=== PATIENT | male | born 1945 | race African-American/Black ===

== ENCOUNTER 2017-05-19 09:32 | Emergency (ER) | payer MEDICARE, MEDICAID ==
[2017-05-19] MEDS ORDERED: HYDROcodone/Acetaminophen 5/325 mg Tablet ONE (10:27)
--- NOTE | 2017-05-19 11:07 | RAD ---
LEFT HIP 2 VIEW: Date: 05/19/17 INDICATION: Pain. FINDINGS: There is no evidence of fracture or dislocation. Moderate osteoarthritis is present involving the lef t hip. There is degenerative change of the incidentally imaged regional skeletal structures. Heteroto pic density overlies the left lateral gluteal soft tissues. IMPRESSION: Moderate osteoarthritis of the left hip without acute fracture. POS: [facility]
--- NOTE | 2017-05-19 11:10 | RAD ---
3 VIEWS LUMBAR SPINE: Date: 05/19/17 COMPARISON: None. HISTORY: Left hip pain, radiculopathy. FINDINGS: There are five lumbar-type vertebral bodies with intact pedicles on frontal imaging. Lateral imaging demonstrates facet hypertrophy at L4-5 and L5-S1. There is mild multilevel disc space narrowing and anterior osteophyte formation seen within the lumbar spine. There is no fracture. Ther e is no anterolisthesis or retrolisthesis. Incompletely assessed area of increased density overlies the inferolateral aspect of the left iliac b one, which may be within the soft tissues. There is degenerative change involving bilateral hips, inc ompletely assessed. IMPRESSION: Degenerative change. No acute fracture. POS: [facility]
== END 2017-05-19 12:04 | disposition home or self-care (01) ==
LOC: NAV ERS 09:32
DX: M16.12 Unilateral primary osteoarthritis, left hip (principal); M54.5 Low back pain; G47.30 Sleep apnea, unspecified; E11.9 Type 2 diabetes mellitus without complications; I11.0 Hypertensive heart disease with heart failure; I50.9 Heart failure, unspecified; J44.9 Chronic obstructive pulmonary disease, unspecified; F17.210 Nicotine dependence, cigarettes, uncomplicated
CPT/HCPCS: 72100

== ENCOUNTER 2017-05-24 09:38 | Emergency (ER) | payer MEDICARE, MEDICAID | END 2017-05-24 10:10 | disposition home or self-care (01) | LOC: NAV ERS 09:38 | DX: M19.90 Unspecified osteoarthritis, unspecified site (principal); J44.9 Chronic obstructive pulmonary disease, unspecified; E11.9 Type 2 diabetes mellitus without complications; I11.0 Hypertensive heart disease with heart failure; I50.9 Heart failure, unspecified; F17.210 Nicotine dependence, cigarettes, uncomplicated; Z79.891 Long term (current) use of opiate analgesic; Z79.84 Long term (current) use of oral hypoglycemic drugs; Z79.899 Other long term (current) drug therapy | CPT/HCPCS: 99283 ==

== ENCOUNTER 2017-06-07 09:30 | Emergency (ER) | payer MEDICARE, MEDICAID ==
[2017-06-07] MEDS ORDERED: Acetaminophen 500 MG TAB ONE (10:43)
== END 2017-06-07 10:45 | disposition home or self-care (01) ==
LOC: NAV ERS 09:30
DX: M25.511 Pain in right shoulder (principal); M25.512 Pain in left shoulder; J44.9 Chronic obstructive pulmonary disease, unspecified; I11.0 Hypertensive heart disease with heart failure; I50.9 Heart failure, unspecified; G47.30 Sleep apnea, unspecified; Z87.891 Personal history of nicotine dependence; Z79.84 Long term (current) use of oral hypoglycemic drugs; Z79.899 Other long term (current) drug therapy
CPT/HCPCS: 99283

== ENCOUNTER 2017-12-17 10:49 | Emergency (ER) | payer MEDICARE, MEDICAID ==
[2017-12-17 12:39] LABS: Bilirubin Negative (Negative); Blood, Urine Negative (Negative); Clarity Clear (Clear); Glucose, Urine (Dipstick) Negative (Negative); Leukocyte Negative (Negative); Nitrite Negative (Negative); Protein, Urine (Dipstick) Negative (Neg-Trace); Urobilinogen 0.2 mg/dL (0.2-1.0)
--- NOTE | 2017-12-17 12:45 | RAD ---
RIGHT RIB SERIES CHEST SINGLE VIEW SERIES: Date: 12/17/17 CLINICAL HISTORY: Chest injury, pain. FINDINGS: There is redemonstration of rounded density of the right perihilar region and medial right lung base. There is adjacent hazy density indicative of pleural fluid. A rib fracture of the right chest is not visualized. Left chest port is present. There is evidence of edema, likely related to CHF. IMPRESSION: 1. No discrete right rib fracture. 2. Persistent rounded density of the perihilar and infrahilar aspect of right hemithorax with adjace nt hazy density suggestive of pleural fluid. 3. Decompensated CHF. POS: [facility]
[2017-12-17 12:52] LABS: ALT (SGPT) 10 U/L (8-55); AST (SGOT) 12 U/L (5-34); Albumin 3.6 g/dL (3.4-4.8); Alkaline Phosphatase 78 U/L (40-150); Anion Gap 14 mmol/L (10-20); BUN (Urea Nitrogen) 12 mg/dL (8.4-25.7); Bilirubin, Total 0.3 mg/dL (0.2-1.2); CK (CPK) 49 U/L (30-200); Calc. Creatinine Clearance 0 mL/min (70-130); Calcium 9.7 mg/dL (7.8-10.44); Carbon Dioxide 33 mmol/L (23-31); Chloride 100 mmol/L (98-107); Estimated GFR-MDRD 86; Glucose 102 mg/dL (83-110); Potassium 4.5 mmol/L (3.5-5.1); Protein, Total 6.6 g/dL (5.8-8.1); Sodium 142 mmol/L (136-145)
[2017-12-17 12:53] LABS: CKMB 1.2 ng/mL (0-6.6); Troponin I 0.016 ng/mL (< 0.028)
[2017-12-17 12:55] LABS: #Basophils 0.1 thou/uL (0.0-0.2); #Eosinphils 0.2 thou/uL (0.0-0.7); #Lymphocytes 0.7 thou/uL (1.20-3.40); #Monocytes 0.3 thou/uL (0.11-0.59); #Neutrophils 5.6 thou/uL (1.40-6.50); %Basophils 1.2 % (0.0-1.0); %Eosinophils 3.2 % (0.0-10.0); %Lymphocytes 9.8 % (21.0-51.0); %Monocytes 4.5 % (0.0-10.0); %Neutrophils 81.3 % (42.0-75.0); Anisocytosis SLIGHT = 6-15 cells (100X) (0-5/hpf); Hemoglobin 13.5 g/dL (14.0-18.0); MDiff Complete? YES; Mean Corpuscular HGB CONC 28.2 g/dL (32.0-36.0); Mean Corpuscular Hemoglobin 25.8 pg (27.0-31.0); Mean Corpuscular Volume 91.7 fL (78.0-98.0); Mean Platelet Volume 6.7 fL (7.4-10.4); PLT Morphology Comment Appears Adequate; Platelet Count 190 thou/uL (130-400); RBC Distribution Width 18.5 % (11.5-14.5); Red Blood Cell (RBC) Count 5.24 mill/uL (4.70-6.10); White Blood Cell (WBC) Count 6.9 thou/uL (4.8-10.8)
== END 2017-12-17 13:13 | disposition home or self-care (01) ==
LOC: NAV ERS 10:49
DX: S23.41XA Sprain of ribs, initial encounter (principal); E78.5 Hyperlipidemia, unspecified; I11.0 Hypertensive heart disease with heart failure; I50.9 Heart failure, unspecified; E11.9 Type 2 diabetes mellitus without complications; J44.9 Chronic obstructive pulmonary disease, unspecified; F17.210 Nicotine dependence, cigarettes, uncomplicated; Z79.84 Long term (current) use of oral hypoglycemic drugs; Z79.899 Other long term (current) drug therapy; W18.30XA Fall on same level, unspecified, initial encounter
CPT/HCPCS: 80053; 81003; 82553; 84484; 85025; 93005

== ENCOUNTER 2018-07-12 08:28 | Outpatient (CLI) | payer MEDICARE, OTHER ==
[2018-07-12] MEDS ORDERED: Iopamidol 370 76% 100 ML VIAL ONE (09:00)
--- NOTE | 2018-07-12 10:57 | CT ---
CT CHEST WITH IV CONTRAST: DATE: 07/12/2018. PROVIDED CLINICAL HISTORY: Lung cancer. FINDINGS: Comparison is made with the studies dated 03/19/2018 and 10/07/2017. The heart, pericardium, and great vessels demonstrate an unchanged CT appearance. Mildly enlarged ri ght paratracheal lymph node is redemonstrated. No additional thoracic lymph node enlargement is evid ent. There has been interval increase in reticulonodular opacity in a peribronchovascular distribution inv olving the posterior segment of the right upper lobe. The posterior segment pleural-based nodular de nsity initially described on the 10/07/2017 examination is not definitely discretely separable from th e somewhat confluent reticulonodular opacity present involving the right upper lobe on today's examin ation. There is a 2.1 cm greatest transverse dimension focal area of parenchymal opacity that involves the m ore central aspects of the right upper lobe and probably represents interval growth of the previously described 1 cm right upper lobe pulmonary nodule on the 03/19/2018 study. In addition, there has been interval development of a separate area of discrete nodularity involving the more inferior aspects of the posterior segment of the right upper lobe, measuring about 7 mm in g reatest transverse dimension and about 11 mm in greatest craniocaudal dimension. This is seen to bes t advantage on the coronal reconstructions image 118 and lung windows image 19. Scattered additional areas of predominantly linear parenchymal opacity are demonstrated, likely reflecting subsegmental v olume loss. There is a small right pleural effusion, similar to the prior study. Destructive change involving th e posterior aspects of the right 9th rib are redemonstrated with progressive osseous destruction and adjacent soft tissue density. The airway appears patent and of normal caliber. There is no evidence for pneumothorax. The visualized portions of the upper abdomen demonstrate no significant interval change. IMPRESSION: 1. Worsening reticulonodular parenchymal opacity involving the right upper lobe suspicious for neopl asm. Development of new parenchymal nodule involving right upper lobe separate from this area of ret iculonodular opacity measuring 1.1 cm. 2. Progressive bone destruction and juxta-osseous soft tissue mass involving the posterior right 9th rib. POS: [facility]
== END 2018-07-12 08:29 | disposition home or self-care (01) ==
LOC: NAV CT 08:28
PROVIDERS: ATTEND Internal Medicine Hematology & Oncology
DX: C34.11 Malignant neoplasm of upper lobe, right bronchus or lung (principal); R91.8 Other nonspecific abnormal finding of lung field; M89.8X8 Other specified disorders of bone, other site
CPT/HCPCS: 71260; Q9967

== ENCOUNTER 2018-09-15 09:49 | Outpatient (CLI) | payer MEDICARE, MEDICAID ==
[~2018-09-15 09:49] MED LIST: Iopamidol 370 76% 100 ML VIAL ONE
--- NOTE | 2018-09-15 11:44 | CT ---
CT CHEST WITH CONTRAST: HISTORY: Lung cancer. Osseous metastases to the 9th rib. The patient has undergone chemotherapy. COMPARISON: 07/12/2018 and 03/29/2018 FINDINGS: Stable right paratracheal lymph node, measuring 1.0 x 1.3 cm (previously measuring 0.9 x 0.8 cm). St able prevascular lymph node, measuring 2.0 x 1.3 cm (2.2 x 1.3 cm). Normal heart size. No significant pericardial fluid. Visualized aorta has a normal caliber. Stable hypodensity in the left hepatic lobe. Visualized upper solid organs are unremarkable. Trachea and central bronchi are patent. Patchy irregular opacities noted in the right upper lung have resolved. Currently, there are more li near appearing opacities, suggesting post treatment change. Interstitial opacities in the right upper lobe may represent post treatment change. There is no evidence of consolidation or mass. Area s of scarring in the lingula, left lower lobe, right lower lobe, and middle lobe are noted. Redemonstration of blebs in the left infrahilar region. Previously noted destructive changes involving the posterior right 9th rib are less evident. Scleros is, suggesting a treated metastatic site, is identified. Associated pathologic fracture is noted, with callus formation, suggesting a chronic process. No additional areas of osseous metastases are a ppreciated. IMPRESSION: 1. Persistent linear opacities, with decreased irregular mass-like opacities in the right upper lobe , suggesting at least partial response to therapy. The changes in the right upper lobe may represent post treatment change. 2. Findings suggesting a treated metastatic lesion involving the posterior right 9th rib. Associate d sclerosis and pathologic fracture. 3. Stable mediastinal lymph nodes. Transcribed Date/Time: 09/15/2018 1:32 PM
== END 2018-09-15 09:50 | disposition home or self-care (01) ==
LOC: NAV CT 09:49
PROVIDERS: ATTEND Internal Medicine Hematology & Oncology
DX: Z01.812 Encounter for preprocedural laboratory examination (principal); C34.90 Malignant neoplasm of unspecified part of unspecified bronchus or lung
CPT/HCPCS: 36415; 71260; 82565; Q9967

== ENCOUNTER 2018-12-30 09:39 | Outpatient (CLI) | payer MEDICARE, OTHER ==
[~2018-12-30 09:39] MED LIST changes: -Iopamidol 370 76% 100 ML VIAL ONE; +Iopamidol 370 76% 50 ML VIAL FS ONE
--- NOTE | 2018-12-30 11:25 | CT ---
Exam: CHEST CT WITH CONTRAST: COMPARISON: 09/15/2018, 07/12/2018, 03/19/2018. HISTORY: Right upper lobe neoplasm FINDINGS: Stable large right paratracheal lymph node with preserved fatty hilum, measuring 1.4 x 0.9 cm. Enlarg ed prevascular lymph node measuring 1.0 x 2.0 cm (previously measuring 1.1 x 2.0 cm). 1.5 x 1.2 cm right perihilar lymph node. Lymph node is difficult to appreciate on the most recent prior examinatio n. Heart size: Normal. No significant pericardial fluid. Aorta: Normal caliber. No aneurysm or dissection. Solid organs: Stable cyst in the left hepatic lobe. Remaining solid organs are grossly unremarkable. Trachea and central bronchi: Patent. No significant mass or occlusion. Right lung: Linear opacities in the right upper lobe are slightly less prominent when compared to the previous examination. Increased linear density, likely representing areas of scar and atelectasis are demonstrated. Middle lobe is unremarkable. There are linear densities in the right lower lobe, al loli with a stable small right-sided pleural effusion. Left lung: Linear densities in the lingula and left lower lobe are unchanged and represent chronic pr ocess There is interval sclerosis involving the posterior right ninth rib. Previously noted pathologic frac ture is difficult to appreciate on the current examination. There is a new lucency involving the right rib, measuring 1.7 x 1.2 cm with an attenuation coefficient of 5 Hounsfield units. Possibility of metastatic disease cannot be excluded. IMPRESSION: 1. Stable mediastinal lymphadenopathy. 2. Questionable enlarged right perihilar lymph node. Lymph node is not definitively appreciated previ ously. 3. Interval sclerosis of a previously noted pathologic fracture involving the posterior right ninth r ib. Interval development of a lucency which may represent a new metastatic deposit in the posterior right ninth rib. Transcribed Date/Time: 12/30/2018 11:31 AM
== END 2018-12-30 09:40 | disposition home or self-care (01) ==
LOC: NAV CT 09:39
PROVIDERS: ATTEND Internal Medicine Hematology & Oncology
DX: C34.11 Malignant neoplasm of upper lobe, right bronchus or lung (principal); R59.0 Localized enlarged lymph nodes; M84.48XD Pathological fracture, other site, subsequent encounter for fracture with routine healing; R93.7 Abnormal findings on diagnostic imaging of other parts of musculoskeletal system
CPT/HCPCS: 36415; 71260; 82565; Q9967

== ENCOUNTER 2019-04-21 09:15 | Outpatient (CLI) | payer MEDICARE, MEDICAID ==
[~2019-04-21 09:15] MED LIST changes: +Iopamidol 370 76% 100 ML VIAL ONE; -Iopamidol 370 76% 50 ML VIAL FS ONE
--- NOTE | 2019-04-21 10:28 | CT ---
CT OF THE CHEST WITH IV CONTRAST INDICATION: Lung cancer COMPARISON: CT of the thorax with IV contrast dated December 30, 2018 and September 15, 2018 FINDINGS: CHEST: Lungs: There is stable reticulation of bronchiectasis within the posterior segment of the right upper lobe most consistent with changes of radiation fibrosis. Mild scattered emphysema is stable. There areas of subsegmental volume loss involving both lower lobes. Pleural space: There is a tiny right pleural effusion. Mediastinum: There is been interval decrease in size of the previously described enlarged right infra hilar lymph node. This previously measured 1.2 cm in its greatest short axis dimension now measures 9 mm on image 30 of series 2. Previously seen enlarged right paratracheal lymph node measuring 9 mm n ow measures 8 mm. Previously seen enlarged prevascular lymph node measuring 9.9 mm now measures 7.3 mm. Upper abdomen:There is a stable left hepatic lobe cysts. Adrenal glands are normal appearing. Osseous structures: There is a new osteolytic lesion involving the posterior right ninth rib now gogo uring 3.9 cm Previously seen lesion involving the posterior lateral right ninth rib has increased in size now gogo uring 2 cm. There is a new lytic lesion involving the anterolateral left fourth rib measuring 9.4 mm. There is scattered degenerative and osteoarthritic changes. Soft tissues:Normal. IMPRESSION: Mixed response to therapy. 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
== END 2019-04-21 09:16 | disposition home or self-care (01) ==
LOC: NAV CT 09:15
PROVIDERS: ATTEND Internal Medicine Hematology & Oncology
DX: Z01.812 Encounter for preprocedural laboratory examination (principal); C34.11 Malignant neoplasm of upper lobe, right bronchus or lung; R59.0 Localized enlarged lymph nodes; C79.51 Secondary malignant neoplasm of bone
CPT/HCPCS: 36415; 71260; 82565; Q9967

== ENCOUNTER 2019-05-10 12:57 | Emergency (ER) | payer MEDICARE, MEDICAID | END 2019-05-10 14:05 | disposition home or self-care (01) | LOC: NAV ERS 12:57 | DX: J06.9 Acute upper respiratory infection, unspecified (principal); E78.5 Hyperlipidemia, unspecified; E11.9 Type 2 diabetes mellitus without complications; C34.91 Malignant neoplasm of unspecified part of right bronchus or lung; I11.0 Hypertensive heart disease with heart failure; E78.00 Pure hypercholesterolemia, unspecified; I50.9 Heart failure, unspecified; M19.90 Unspecified osteoarthritis, unspecified site; J44.9 Chronic obstructive pulmonary disease, unspecified; G47.32 High altitude periodic breathing; F17.210 Nicotine dependence, cigarettes, uncomplicated; Z79.84 Long term (current) use of oral hypoglycemic drugs; Z79.51 Long term (current) use of inhaled steroids; Z79.899 Other long term (current) drug therapy; Z85.038 Personal history of other malignant neoplasm of large intestine | CPT/HCPCS: 99283 ==

== ENCOUNTER 2019-06-08 10:52 | Emergency (ER) | payer MEDICARE, MEDICAID ==
[~2019-06-08 10:52] MED LIST changes: -Iopamidol 370 76% 100 ML VIAL ONE; +Succinylcholine Chloride 20 MG/ML 10 ml SYRINGE FS ONE
[2019-06-08] MEDS ORDERED: Aspirin Chewable 81 MG TAB ONE (11:17)
--- NOTE | 2019-06-08 11:45 | RAD ---
EXAM: Single view of the chest HISTORY: Tachycardia and shortness of breath COMPARISON: 10/19/2018 FINDINGS: Single view of the chest shows a normal sized cardiomediastinal silhouette. The Mediport i s unchanged in position. Low lung volumes are seen which slightly limits this exam. There is stable bilateral hilar fullness, right greater than left. The bones are unremarkable. IMPRESSION: Stable exam
[2019-06-08 11:50] LABS: ALT (SGPT) 11 U/L (8-55); AST (SGOT) 17 U/L (5-34); Albumin 3.6 g/dL (3.4-4.8); Alkaline Phosphatase 57 U/L (40-110); Anion Gap 15 mmol/L (10-20); BUN (Urea Nitrogen) 25 mg/dL (8.4-25.7); Bilirubin, Total 0.3 mg/dL (0.2-1.2); Calc. Creatinine Clearance 0 mL/min (70-130); Carbon Dioxide 32 mmol/L (23-31); Chloride 100 mmol/L (98-107); Estimated GFR-MDRD 53; Globulin 2.5 g/dL (2.4-3.5); Glucose 117 mg/dL (83-110); Potassium 4.6 mmol/L (3.5-5.1); Protein, Total 6.1 g/dL (5.8-8.1); Sodium 142 mmol/L (136-145)
[2019-06-08 11:52] LABS: Hemoglobin 10.1 g/dL (14.0-18.0); MDiff Complete? YES; Mean Corpuscular HGB CONC 28.7 g/dL (32.0-36.0); Mean Corpuscular Hemoglobin 28.5 pg (27.0-31.0); Mean Corpuscular Volume 99.3 fL (78.0-98.0); Mean Platelet Volume 6.2 fL (7.4-10.4); Platelet Count 71 thou/uL (130-400); RBC Distribution Width 23.3 % (11.5-14.5); Red Blood Cell (RBC) Count 3.56 mill/uL (4.70-6.10)
[2019-06-08 11:53] LABS: Eosinophils 2 % (0-10); Lymphocytes 16 % (21-51); Monocytes 2 % (0-10); Neutrophil 80 % (42-75); Nucleated RBC 6 % (0)
[2019-06-08 11:54] LABS: Anisocytosis SLIGHT = 6-15 cells (100X) (0-5/hpf); Hypochromia SLIGHT = 6-15 cells (100X) (0-5/hpf); Macrocytosis SLIGHT = 6-15 cells (100X) (0-5/hpf); Platelet Morphology Comment Appears Decreased
[2019-06-08] MEDS ORDERED: Propofol 1,000 MG/100 ML VIAL IV ONE (12:06)
[2019-06-08] MEDS ORDERED: Furosemide 20 MG/2 ML VIAL ONE (12:16)
[2019-06-08] MEDS ORDERED: Furosemide 40 MG/4 ML VIAL ONE (12:16)
[2019-06-08] MEDS ORDERED: Rocuronium Bromide 10 MG/ML (10ML VIAL) ONE (12:18)
[2019-06-08 12:22] LABS: Base Excess-Venous 6.3 mmol/L (-2.0 to 3.0); Bicarbonate (HCO3v) 37.9 mmol/L (22.0-28.0); CO2 Tension (PvCO2) 96.6 mmHg (40.0-50.0); vO2 Saturation-calc 65.9 % (60.0-85.0)
--- NOTE | 2019-06-08 12:22 | RAD ---
EXAM: Single view of the chest HISTORY: Status post intubation for respiratory failure COMPARISON: None FINDINGS: This exam is limited secondary to underpenetration. Single view of the chest shows an enlar ged but stable cardiomediastinal silhouette. The Mediport is unchanged in position. There is an endotracheal tube with its tip slightly low lying in position near the agnes. Atelectasis is seen i n the right lung base. The bones are unremarkable. IMPRESSION: Probably low-lying endotracheal tube should be withdrawn approximately 3.5 cm.
[2019-06-08 12:23] LABS: Calcium, Ionized 1.23 mmol/L (See Comments:); Chloride 99 mmol/L (98-107); Hemoglobin - Calc 13.5 g/dL (14.0-18.0); Potassium 4.8 mmol/L (3.5-5.1); Sodium 145 mmol/L (138-145); T. Carbon Dioxide 40.9 mmol/L (22.0-28.0)
== END 2019-06-08 12:34 | disposition short-term general hospital (02) ==
LOC: NAV ERS 10:52
DX: J96.91 Respiratory failure, unspecified with hypoxia (principal); R41.82 Altered mental status, unspecified; E78.5 Hyperlipidemia, unspecified; E78.00 Pure hypercholesterolemia, unspecified; E11.9 Type 2 diabetes mellitus without complications; I10 Essential (primary) hypertension; M19.90 Unspecified osteoarthritis, unspecified site; J44.9 Chronic obstructive pulmonary disease, unspecified; G47.30 Sleep apnea, unspecified; F17.210 Nicotine dependence, cigarettes, uncomplicated; Z79.84 Long term (current) use of oral hypoglycemic drugs; Z79.899 Other long term (current) drug therapy
CPT/HCPCS: 31500; 51702; 71045; 80053; 82330; 82803; 83880; 84484; 85025; 93005; 94002; 94640; 94760; 96365; 96374; 96375; J1940; J2704; J7620